=== PATIENT | male | born 2000 | race Caucasian/White ===

== ENCOUNTER 2018-07-14 19:50 | Emergency (ER) | payer BC ==
[~2018-07-14] VITALS: Ht 185.4 cm; Wt 74.7 kg
[2018-07-14 19:53] VITALS: BP 144/84
[2018-07-14] MEDS ORDERED: ACETAMINOPHEN 325 MG TABLET ONE (20:27)
[2018-07-14] MEDS ORDERED: ACETAMINOPHEN 325 MG TABLET PO ONE (20:30)
== END 2018-07-14 20:56 ==
LOC: ED 20:50
DX: S70.02XA Contusion of left hip, initial encounter (principal); V02.99XA Pedestrian with other conveyance injured in collision with two- or three-wheeled motor vehicle, unspecified whether traffic or nontraffic accident, initial encounter; Y93.89 Activity, other specified; Y92.89 Other specified places as the place of occurrence of the external cause; Y99.8 Other external cause status
CPT/HCPCS: 99284

== ENCOUNTER 2021-02-05 23:30 | Inpatient (IN) | payer BC ==
[~2021-02-05] VITALS: Ht 185.4 cm; Wt 75.5 kg
--- NOTE | 2021-02-05 23:44 | NUR ---
ABD PAIN X 2HRS AGO. +VOMITING RIGHT BEFORE COMING TO ED. -V/D.
--- NOTE | 2021-02-05 23:56 | NUR ---
ABD PAIN X 2HRS AGO. +VOMITING RIGHT BEFORE COMING TO ED. -V/D.
[2021-02-06 00:10] LABS: BASOPHILS % (AUTO) 0 % (0-1); EOSINOPHILS % (AUTO) 1 % (1-7); LYMPHOCYTES % (AUTO) 22 % (22-44); MEAN CORPUSCULAR HEMOGLOBIN 28.9 pg (27.5-34.5); MEAN CORPUSCULAR HGB CONC 33.6 g/dL (33.2-36.2); MEAN PLATELET VOLUME 10.4 fL (7.4-10.4); MONOCYTES % (AUTO) 8 % (2-9); NEUTROPHILS % (AUTO) 69 % (42-75); PLATELET COUNT 232 x10^3/uL (130-400); RED BLOOD COUNT 5.45 x10^6/uL (4.38-5.82); RED CELL DISTRIBUTION WIDTH 12.7 % (9.4-14.8)
[2021-02-06 00:12] LABS: MD NO
[2021-02-06 00:16] LABS: ALANINE AMINOTRANSFERASE 23 U/L (12-78); ALBUMIN 4.6 g/dL (3.4-5.0); ANION GAP 6 mmol/L (5-15); CALCIUM 9.5 mg/dL (8.5-10.1); CHLORIDE 104 mmol/L (98-107); CREATININE 1.06 mg/dL (0.7-1.3)
[2021-02-06 00:18] LABS: ALKALINE PHOSPHATASE 75 U/L (45-117); BILIRUBIN,TOTAL 0.5 mg/dL (0.2-1.0); TOTAL PROTEIN 8.6 g/dL (6.4-8.2)
[2021-02-06] MEDS ORDERED: MORPHINE SULFATE 4 MG/ML, 1ML ONE (01:11)
[2021-02-06] MEDS ORDERED: ONDANSETRON 2MG/ML, 2ML ONE (01:11)
[2021-02-06] MEDS ORDERED: SODIUM CHLORIDE FLUSH 10ML SYR IVF ONE ×2 (01:30)
[2021-02-06] MEDS ORDERED: SODIUM CHLORIDE 0.9% 1,000ML IVBOLUS ONE (01:30)
[2021-02-06] MEDS ORDERED: MORPHINE SULFATE 4 MG/ML, 1ML IVPush PRN (01:30)
[2021-02-06] MEDS ORDERED: ONDANSETRON 2MG/ML, 2ML IVPush ONE (01:30)
--- NOTE | 2021-02-06 01:48 | NUR ---
NG TUBE PLACED
--- NOTE | 2021-02-06 01:50 | NUR ---
REPORT TO [facility], PT TO FLOOR WITH TECH
[2021-02-06] MEDS ORDERED: PROMETHAZINE 25 MG/ML, 1ML IM PRN (02:00)
[2021-02-06] MEDS ORDERED: LABETALOL 5MG/ML, 20ML IVPush PRN (02:00)
[2021-02-06] MEDS ORDERED: KETOROLAC 30 MG/1 ML IV ONE (02:00)
[2021-02-06] MEDS ORDERED: ONDANSETRON 2MG/ML, 2ML IVPush PRN (02:00)
[2021-02-06 02:52] VITALS: BP 142/81
[2021-02-06] MEDS: LACTATED RINGERS 1,000 ML IV SCH ×3 (03:05→16:37)
[2021-02-06] MEDS ORDERED: OMNIPAQUE 350 MG/ML, 100ML BOTTLE ONE (03:32)
[2021-02-06 07:10] LABS: AMPHETAMINE SCREEN, URINE Negative (Negative); BARBITURATE SCREEN, URINE Negative (Negative); BENZODIAZEPINE SCREEN, URINE Negative (Negative); CANNABINOID SCREEN, URINE Positive (Negative); COCAINE SCREEN, URINE Negative (Negative); METHADONE SCREEN, URINE Negative (Negative); OPIATE SCREEN, URINE Positive (Negative)
[2021-02-06 07:26] VITALS: BP 128/68
[2021-02-06] MEDS: HYDROmorphone 2 MG/ML, 1ML IVPush PRN ×3 (10:40→20:58)
[2021-02-06] MEDS: BENZOCAINE 20% SPRAY 0.5ML TP PRN ×2 (10:40→15:08)
[2021-02-06 12:54] VITALS: BP 125/76
[2021-02-06 14:50] LABS: MICROSCOPIC NOT IND
[2021-02-06 20:01] VITALS: BP 131/80
[2021-02-07] MEDS: LACTATED RINGERS 1,000 ML IV SCH ×2 (01:23→08:00)
[2021-02-07 01:55] VITALS: BP 114/73
[2021-02-07 05:57] LABS: BASOPHILS % (AUTO) 1 % (0-1); EOSINOPHILS % (AUTO) 3 % (1-7); LYMPHOCYTES % (AUTO) 27 % (22-44); MD NO; MEAN CORPUSCULAR HEMOGLOBIN 28.7 pg (27.5-34.5); MEAN PLATELET VOLUME 9.8 fL (7.4-10.4); MONOCYTES % (AUTO) 11 % (2-9); NEUTROPHILS % (AUTO) 59 % (42-75); PLATELET COUNT 189 x10^3/uL (130-400); RED BLOOD COUNT 4.83 x10^6/uL (4.38-5.82); RED CELL DISTRIBUTION WIDTH 12.6 % (9.4-14.8)
[2021-02-07 06:13] LABS: ANION GAP 5 mmol/L (5-15); CALCIUM 8.8 mg/dL (8.5-10.1); CHLORIDE 110 mmol/L (98-107)
[2021-02-07 07:15] VITALS: BP 130/83
[2021-02-07 14:08] VITALS: BP 130/80
== END 2021-02-07 17:05 | disposition home or self-care (01) | DRG 390 ==
LOC: ED 02-06 01:23 → EDIP 02-06 01:26 → 4NE 02-06 02:20
PROVIDERS: ADMIT Family Medicine; ATTEND Family Medicine
PROC: 0D9670Z Drainage of Stomach with Drainage Device, Via Natural or Artificial Opening (ICD-10-PCS; principal; 2021-02-06)
DX: K56.601 Complete intestinal obstruction, unspecified as to cause (principal); F12.10 Cannabis abuse, uncomplicated; R73.9 Hyperglycemia, unspecified; K52.9 Noninfective gastroenteritis and colitis, unspecified; D72.829 Elevated white blood cell count, unspecified
CPT/HCPCS: 36415; 74018; 74177; 74250; 80048; 80053; 80307; 81003; 83690; 85025; 96374; 96375; G0378; J1170; J1885; J2405; Q9967; J2270; J7030; J7120